=== PATIENT | female | born 1975 | race African-American/Black ===

== ENCOUNTER 2018-07-22 11:13 | Emergency (ER) | payer BC ==
[~2018-07-22] VITALS: Ht 175.3 cm; Wt 63.0 kg
[2018-07-22] MEDS ORDERED: SODIUM CHLORIDE 0.9% 1,000 ML IV ONE (12:00)
[2018-07-22 13:06] LABS: HEMATOCRIT. 26.2 % (36.0-48.0); HEMOGLOBIN. 7.7 g/dL (12.0-16.0); MEAN CORPUSCULAR HEMOGLOBIN 16.7 pg (28.0-32.0); MEAN CORPUSCULAR VOLUME 56.9 fL (81.0-99.0); RED CELL DISTRIBUTION WIDTH 24.1 % (11.6-14.6)
[2018-07-22 13:14] LABS: CHLORIDE 109 mEq/L (98-107)
[2018-07-22 13:30] LABS: PLATELET ESTIMATE NORMAL
[2018-07-22 13:33] LABS: PLATELET 295 x1000/uL (130-400)
[2018-07-22 14:02] LABS: T4 FREE 0.59 ng/dL (0.76-1.46)
[2018-07-22 14:03] LABS: INR 1.2; PARTIAL THROMBOPLASTIN TIME 24.8 sec (23.4-31.0)
[2018-07-22 14:26] LABS: CLARITY URINE CLOUDY (CLEAR); COLOR URINE YELLOW (YELLOW); KETONES URINE NEGATIVE (NEGATIVE); LEUKOCYTE ESTERASE URINE NEGATIVE (NEGATIVE); NITRITE URINE NEGATIVE (NEGATIVE); OCCULT BLOOD URINE NEGATIVE (NEGATIVE); PH URINE 6.5 (4.5-8.0); PROTEIN URINE NEGATIVE (NEGATIVE); UROBILINOGEN URINE 0.2 E.U./dL (0.2-1.0)
[2018-07-22 14:35] VITALS: BP 125/59
== END 2018-07-22 14:37 | disposition home or self-care (01) ==
LOC: ER 12:24 → CANBEDREQ 14:51
DX: D64.9 Anemia, unspecified (principal); R55 Syncope and collapse; R42 Dizziness and giddiness; R53.83 Other fatigue; E03.9 Hypothyroidism, unspecified; R53.81 Other malaise
CPT/HCPCS: 36415; 80053; 81003; 81025; 84439; 84443; 85025; 85610; 85730; 86850; 86900; 86901; 96360; 96361; 99285; J7030

== ENCOUNTER 2021-07-15 19:44 | Emergency (ER) | payer BC ==
[~2021-07-15] VITALS: Ht 175.3 cm; Wt 59.0 kg
[~2021-07-15 19:44] MED LIST: FERR-71 MT
[2021-07-15] MEDS ORDERED: HYDROCODONE/ACETAMINOPHEN 10/325MG TABLET PO ONE (20:45)
[2021-07-15] MEDS ORDERED: IBUPROFEN 600MG TABLET PO ONE (20:45)
[2021-07-15 21:23] VITALS: BP 119/72
[2021-07-15] MEDS ORDERED: IBUP-2029 MT (22:29)
== END 2021-07-15 23:20 | disposition home or self-care (01) ==
LOC: ER 19:44
DX: M25.572 Pain in left ankle and joints of left foot (principal); V00.131A Fall from skateboard, initial encounter; Y93.51 Activity, roller skating (inline) and skateboarding; Y92.488 Other paved roadways as the place of occurrence of the external cause
CPT/HCPCS: 73630; 99283

== ENCOUNTER 2022-01-20 08:04 | Emergency (ER) | payer BC ==
[~2022-01-20] VITALS: Ht 175.3 cm; Wt 56.0 kg
[~2022-01-20 08:04] MED LIST changes: +IBUP-2029 MT
[2022-01-20] MEDS ORDERED: AMOX-424 MT (09:36)
[2022-01-20 09:45] VITALS: BP 129/63
[2022-01-20] MEDS ORDERED: AMOXICILLIN/POTASSIUM CLAVULANATE 875/125MG TAB PO ONE (09:45)
== END 2022-01-20 09:47 | disposition home or self-care (01) ==
LOC: ER 08:20
DX: L03.032 Cellulitis of left toe (principal); E78.00 Pure hypercholesterolemia, unspecified; E03.9 Hypothyroidism, unspecified
CPT/HCPCS: 73660; 99283

== ENCOUNTER 2022-05-15 18:29 | Emergency (ER) | payer BC ==
[~2022-05-15] VITALS: Ht 177.8 cm; Wt 79.0 kg
[~2022-05-15 18:29] MED LIST changes: +AMOX-424 MT
[2022-05-15] MEDS ORDERED: ACETAMINOPHEN 325MG TABLET PO ONE (20:00)
[2022-05-15 20:16] LABS: EOSINOPHILS % 1.7 % (0.0-5.0); HEMATOCRIT. 36.3 % (36.0-48.0); HEMOGLOBIN. 11.4 g/dL (12.0-16.0); LYMPHOCYTES % 36.2 % (20.0-50.0); MEAN CORPUSCULAR VOLUME 72.9 fL (81.0-99.0); MEAN PLATELET VOLUME 11.1 fl (7.4-10.4); MONOCYTES % 12.3 % (2.0-8.0); NEUTROPHILS % 48.8 % (40.0-76.0); PLATELET 203 x1000/uL (130-400); RED BLOOD CELL COUNT 4.98 mill/uL (4.2-5.4); RED CELL DISTRIBUTION WIDTH 21.7 % (11.6-14.6)
[2022-05-15 20:23] LABS: CHLORIDE 106 mEq/L (98-107)
[2022-05-15 20:24] LABS: HCG SCREEN NEGATIVE
[2022-05-15 20:32] LABS: ETHANOL BLOOD < 10 mg/dL
[2022-05-15] MEDS ORDERED: KETOROLAC 15MG/ML VIAL IV NR (21:00)
[2022-05-15 21:01] LABS: CLARITY URINE CLEAR (CLEAR); COLOR URINE YELLOW (YELLOW); KETONES URINE NEGATIVE (NEGATIVE); LEUKOCYTE ESTERASE URINE 1+ (NEGATIVE); NITRITE URINE NEGATIVE (NEGATIVE); OCCULT BLOOD URINE 3+ (NEGATIVE); PH URINE 6.5 (4.5-8.0); PROTEIN URINE 1+ (NEGATIVE); SPECIFIC GRAVITY URINE 1.023 (1.005-1.030); UROBILINOGEN URINE 0.2 E.U./dL (0.2-1.0)
[2022-05-15 21:13] LABS: *AMPHETAMINES SCREEN URINE NEGATIVE (NEGATIVE); *BARBITURATES SCREEN URINE NEGATIVE (NEGATIVE); *BENZODIAZEPINES SCREEN URINE NEGATIVE (NEGATIVE); *COCAINE SCREEN URINE NEGATIVE (NEGATIVE); METHADONE URINE SCREEN NEGATIVE (NEGATIVE); OPIATES URINE SCREEN NEGATIVE (NEGATIVE); PHENCYCLIDINE URINE SCREEN NEGATIVE (NEGATIVE)
[2022-05-15 21:21] LABS: CANNABINOID URINE SCREEN PRESUMTIVE POSITIVE (NEGATIVE)
[2022-05-15] MEDS ORDERED: IBUP-2029 MT (22:09)
[2022-05-15] MEDS ORDERED: ONDA8TAB13 MT (22:09)
[2022-05-15 22:22] VITALS: BP 128/82
== END 2022-05-15 22:35 | disposition home or self-care (01) ==
LOC: ER 18:29
DX: R10.9 Unspecified abdominal pain (principal); F12.10 Cannabis abuse, uncomplicated; Z13.9 Encounter for screening, unspecified; Z86.39 Personal history of other endocrine, nutritional and metabolic disease
CPT/HCPCS: 36415; 74176; 76700; 80053; 80305; 80320; 81003; 83690; 84703; 85025; 96374; 99284; J1885; G0480

== ENCOUNTER 2025-05-03 10:28 | Emergency (ER) | payer BC ==
[~2025-05-03] VITALS: Ht 175.3 cm; Wt 75.0 kg
[~2025-05-03 10:28] MED LIST changes: +ONDA-241 MT
[2025-05-03 10:35] VITALS: O2SAT 99
[2025-05-03] MEDS: IBUPROFEN 600MG TABLET PO ONE (12:11)
[2025-05-03] MEDS ORDERED: IBUP-2029 MT (12:26)
[2025-05-03 12:47] VITALS: BP 142/61; PULSE 60; RESP 18; TEMP 36.2; O2SAT 99
== END 2025-05-03 12:50 | disposition home or self-care (01) ==
LOC: ER 10:28
DX: M25.532 Pain in left wrist (principal); E03.9 Hypothyroidism, unspecified; F12.90 Cannabis use, unspecified, uncomplicated
CPT/HCPCS: 29125; 73110; 99283